=== PATIENT | male | born 1990 | race Caucasian/White ===

== ENCOUNTER → 2020-11-06 | Outpatient (CLI) | payer MEDICARE, OTHER | LOC: HEART CORB 15:02 | DX: I49.3 Ventricular premature depolarization (principal); R00.2 Palpitations ==

== ENCOUNTER → 2020-11-16 | Outpatient (CLI) | payer MEDICARE, OTHER | LOC: HEART CORB 10:53 | DX: R07.2 Precordial pain (principal); R00.2 Palpitations; I49.3 Ventricular premature depolarization; Z86.79 Personal history of other diseases of the circulatory system; I07.1 Rheumatic tricuspid insufficiency | CPT/HCPCS: 93306 ==